=== PATIENT | male | born 1965 | race Hispanic/Latino ===

== ENCOUNTER 2018-06-26 22:35 | Emergency (ER) | payer OTHER ==
[2018-06-26 23:05] VITALS: TEMP 98.1; O2SAT 99
[2018-06-26] MEDS ORDERED: Sodium Chloride 0.9% 1,000 ML IV STA (23:35)
--- NOTE | 2018-06-26 23:58 | ED PDOC ---
HPI: Headache Time Seen by Provider: 06/26/18 23:24 Chief Complaint (Nursing): Dizziness/Lightheaded Chief Complaint (Provider): Dizziness/Headache History Per: Patient History/Exam Limitations: no limitations Current Symptoms Are (Timing): Still Present Associated Symptoms: denies: Blurred Vision Additional Complaint(s): 52 year old male, with a history of high blood pressure, presents today with dizziness and headache. Patient states that he has had this before and it goes away on its own. He states that for the past 4 hours, symptoms started with a headache and felt dizziness that he describes as light headedness. Headache is non thunderclap and non maximal on onset. Denies vision changes, weakness, numbness, or loss of function. Yesterday, patient had an episode of chest pain but none today. Denies shortness of breath. PMD: none provided Past Medical History Reviewed: Historical Data, Nursing Documentation, Vital Signs Vital Signs: Last Vital Signs Temp 98.1 F 06/26/18 23:00 Pulse 66 06/26/18 23:00 Resp 18 06/26/18 23:00 BP 130/80 06/26/18 23:00 Pulse Ox 99 06/26/18 23:00 - Medical History PMH: HTN - Surgical History Surgical History: No Surg Hx - Family History Family History: States: Unknown Family Hx - Home Medications Home Medications: Ambulatory Orders Medication Instructions Recorded Aspirin/Acetaminophen/Caffeine 1 each PO Q8 PRN #30 tablet 06/27/18 [Excedrin Migraine Geltab] - Allergies Allergies/Adverse Reactions: Allergies Allergy/AdvReac Type Severity Reaction Status Date / Time No Known Allergies Allergy Verified 06/26/18 23:04 Review of Systems ROS Statement: Except As Marked, All Systems Reviewed And Found Negative Eyes: Negative for: Vision Change Cardiovascular: Negative for: Chest Pain Respiratory: Negative for: Shortness of Breath Neurological: Positive for: Headache, Dizziness (light headedness). Negative for: Weakness, Numbness, Other (loss of function) Physical Exam - Reviewed Nursing Documentation Reviewed: Yes Vital Signs Reviewed: Yes - Physical Exam Appears: Positive for: Non-toxic, No Acute Distress Head Exam: Positive for: ATRAUMATIC, NORMOCEPHALIC Skin: Positive for: Normal Color, Warm, Dry Eye Exam: Positive for: Normal appearance Neck: Positive for: Normal, Painless ROM Cardiovascular/Chest: Positive for: Regular Rate, Rhythm Respiratory: Positive for: Normal Breath Sounds. Negative for: Wheezing, Respiratory Distress Gastrointestinal/Abdominal: Positive for: Normal Exam, Soft. Negative for: Tenderness Extremity: Positive for: Normal ROM Neurologic/Psych: Positive for: Alert, language tutor II-XII, Oriented (x3). Negative for: Motor/Sensory Deficits - Laboratory Results Result Diagrams: 06/27/18 00:01 06/27/18 00:01 - ECG O2 Sat by Pulse Oximetry: 99 (RA) Pulse Ox Interpretation: Normal Medical Decision Making Medical Decision Making: A/P: 52 y/o male with a history of high blood pressure presenting with headache and dizziness. Patient is very well appearing and comfortable with normal vital signs. Dizziness is unlikely a cardiac etiology but possibly related to complicated migraine, dehydration, electrolyte imbalance, or among others not listed. Initial Plan: --Head CT --ECG --Alcohol serum stat --BMP --Troponin stat --CBC --Sodium chloride 1000mL IV --Reglan 10mg IV --Toradol 15mg IV 00:[address] Normal size of the ventricles and extra-axial spaces for the patient's age. Normal white matter tracts of the supratentorial brain. Normal basal ganglia and thalami. Normal brainstem. Normal cerebellum. There is no demonstrated extra-axial, intraparenchymal, or intraventricular hemorrhage. There are no findings of an acute ischemic infarction. Normal calvarium. There is no demonstrated fracture. Normal soft tissue structures. Normal visualized paranasal sinuses. IMPRESSION: Normal unenhanced CT scan of the brain. 200 --Patient re-evaluted at bedside, states he's feeling much better, no longer dizzy, headache resolved --EKG shows NSR at HR of 54, no ST-T wave changes --Advised patient to increase hydration, take excedrin as needed, followup with Dr. Amanda and PMD --Very well appearing, tolerating PO, steady gait upon discharge Scribe Attestation: Documented by Alex Monroe acting as a scribe for Maxi Xiao MD. Provider Scribe Attestation: All medical record entries made by the Scribe were at my direction and personally dictated by me. I have reviewed the chart and agree that the record accurately reflects my personal performance of the history, physical exam, medical decision making, and the department course for this patient. I have also personally directed, reviewed, and agree with the discharge instructions and disposition Disposition - Clinical Impression Clinical Impression: Dizziness, Headache - Disposition Referrals: Fabian Amanda MD [Medical Doctor] - Disposition: Routine/Home Disposition Time: 02:00 Condition: STABLE Prescriptions: Aspirin/Acetaminophen/Caffeine [Excedrin Migraine Geltab] 1 each PO Q8 PRN #30 tablet PRN Reason: Pain, Moderate (4-7) Instructions: Headache, Adult (DC), Dizziness, Nonvertigo, (DC) Forms: [place]
[2018-06-27 00:13] LABS: BASO # 0.1 K/uL (0.0-0.2); BASO % 0.7 % (0.0-2.0); EOS # 0.2 K/uL (0.0-0.7); EOS % 1.6 % (0.0-4.0); HEMOGLOBIN 14.8 g/dL (12.0-18.0); LYMPH # 3.3 K/uL (1.0-4.3); LYMPH % 24.7 % (20.0-40.0); MEAN CELL VOLUME 85.3 fl (80.0-94.0); MEAN CORPUSCULAR HEMOGLOBIN 28.8 pg (27.0-31.0); MEAN CORPUSCULAR HGB CONC 33.8 g/dL (33.0-37.0); MEAN PLATELET VOLUME 8.5 fl (7.2-11.7); MONO # 0.9 K/uL (0.0-0.8); NEUT # 8.7 K/uL (1.8-7.0); NRBC % 0.1 % (0.0-0.0); RBC 5.12 Mil/uL (4.40-5.90); RED CELL DISTRIBUTION WIDTH 13.7 % (11.5-14.5); WHITE BLOOD COUNT 13.2 K/uL (4.8-10.8)
[2018-06-27 00:24] LABS: BLOOD UREA NITROGEN 19 mg/dl (9-20); CALCIUM 8.9 mg/dL (8.4-10.2); GFR NON-AFRICAN AMERICAN > 60
[2018-06-27 09:03] VITALS: BP 138/60; PULSE 72; RESP 16
--- NOTE | 2018-06-27 09:19 | CT ---
Date of service: 06/27/2018 PROCEDURE: CT HEAD WITHOUT CONTRAST. HISTORY: Headache, dizziness COMPARISON: None available. TECHNIQUE: Axial computed tomography images were obtained through the head/brain without intravenous contrast. Radiation dose: Total exam DLP = 837.63 mGy-cm. This CT exam was performed using one or more of the following dose reduction techniques: Automated exposure control, adjustment of the mA and/or kV according to patient size, and/or use of iterative reconstruction technique. FINDINGS: HEMORRHAGE: No intracranial hemorrhage. BRAIN: Osborne-white matter differentiation is preserved. There is no mass, mass effect or abnormal extra-axial fluid collection. There is no territorial infarction. The midline sagittal structures are normal. VENTRICLES: The ventricles are normal in size, shape and configuration. CALVARIUM: There is no calvarial fracture or extracranial soft tissue swelling. PARANASAL SINUSES: Predominantly clear. MASTOID AIR CELLS: Predominantly clear. OTHER FINDINGS: None. IMPRESSION: No acute intracranial abnormality.
--- NOTE | 2018-06-27 10:40 | CARD ---
APPROVED REPORT Date of service: 06/27/2018 EKG Measurement Heart [id number] <Conclusion> Sinus bradycardia Otherwise normal ECG
== END 2018-06-27 02:35 | disposition home or self-care (01) ==
LOC: H.ER 22:35
DX: R42 Dizziness and giddiness (principal); R51 Headache